=== PATIENT | male | born 1980 | race Caucasian/White ===

== ENCOUNTER 2022-10-17 16:27 | Emergency (ER) | payer SELFPAY ==
[2022-10-17 16:40] VITALS: BP 152/75; PULSE 67; RESP 16; TEMP 36.4; O2SAT 99; BMI 28.1
[2022-10-17] MEDS: LIDOCAINE 1 % PF 30 ML INJECTION (17:39)
--- NOTE | 2022-10-17 18:17 | ED.GENADULT ---
HPI - General Adult General Chief complaint: Extremity Pain/Injury, Upper Stated complaint: Smashed R middle finger, Has a green color by nail Time Seen by Provider: 10/17/22 17:19 Source: patient Mode of arrival: ambulatory Limitations: no limitations History of Present Illness HPI narrative: 42-year-old otherwise healthy male presents to the emergency department with swelling and tenderness with what appears to be pus along the medial 3rd finger nail fold of the right side. He says he was working outside 4 days ago when his finger got pulled into a tyrone, a pinch type injury. He was able to pull his finger out without significant difficulty. He says that his hands were cold in his dexterity was reduced because of the cold, leading to the mild injury. He is able to flex and extend the fingers without difficulty and declines an x-ray today. As however notice increased redness and swelling along the dorsum of the 3rd finger, increasing today. For started to notice yellowish green pus along the nail bed which seems to be increasing also. He has some mild tenderness but is not overly bothered by it. He did not notice any broken skin or lacerations as result of the injury. He has not been taking medication to help with his symptoms. Hurts more when bumped. No fever. He does not using immunosuppressants, he has no history of autoimmune disease. No history of MRSA. No other areas of injury. No drainage noted from the finger. Past medical history benign, no major long-term health problems. No prescription medications, no recent surgeries. No allergies. ROS is negative for other skin, generalized, musculoskeletal or neurological injuries. Related Data Previous Rx's Medication Instructions Recorded dextroamphetamine-amphetamine ER 30 mg PO QAM ADHD #30 caps 07/28/22 30 mg 24hr capsule,extend release (Adderall XR) amoxicillin 875 mg-potassium 1 tab PO BID #14 tabs 10/17/22 clavulanate 125 mg tablet Allergies Allergy/AdvReac Type Severity Reaction Status Date / Time No Known Allergies Allergy Verified 05/27/22 14:46 [facility] Medical History ADHD Social History Smoking Status: Never smoker service: No Exam Const: Vital Signs, click to edit/add: Vital Signs - 24 hr 10/17/22 16:40 Temperature 97.5 F L Pulse Rate [Pulse Oximeter] 67 Respiratory Rate 16 Blood Pressure [Le ft Upper Arm] 152/75 H Pulse Oximetry 99 Oxygen Delivery Me thod Room Air Documenting provider has reviewed patient's vital signs: yes Common normals: no apparent distress General appearance: cooperative HENMT: Common normals: normocephalic Head and scalp: normocephalic Eye: Common normals: no scleral icterus Other: Normal gaze and visual tracking Resp: Common normals: normal respiratory effort and no use of accessory muscles Effort & inspection: able to speak in complete sentences Cardio: Common normals: regular rate, regular rhythm, S1 normal heart sound, S2 normal heart sound and peripheral pulses 2+ throughout Rate: regular rate Rhythm: regular rhythm Heart sounds: S1 normal and S2 normal Peripheral pulses: pulses 2+ throughout Extremity: Other: Right wrist with normal range of motion. The only affected finger is the 3rd right finger, as he described. There is marked swelling to the distal phalanx on the dorsum side with redness and yellow purulent appearing discoloration underneath the skin along the nail bed. It is more medial than lateral. Marked swelling is noted as well. The swelling does not extend past the middle phalanx. There is no streaking or swelling up the arm. He has normal abduction and adduction of all the fingers and can flex and extend without difficulty at each interphalangeal and MCP joint. No drainage noted, no broken skin. Psych: Attitude: engaged Insight: insight good Judgement: judgment good Skin: Common normals: no wounds (See extremity exam as above or swelling, redness, purulent subcutaneous jeff) Course Vital Signs Vital signs: Initial Vital Signs Temperature 97.5 F L 10/17/22 16:40 Temperature Source Temporal Artery Scan 10/17/22 16:40 Pulse Rate 67 10/17/22 16:40 Respiratory Rate 16 10/17/22 16:40 Blood Pressure 152/75 H 10/17/22 16:40 Blood Pressure Mean 100 10/17/22 16:40 Blood Pressure Position Sitting 10/17/22 16:40 Pulse Oximetry 99 10/17/22 16:40 Oxygen Delivery Method 10/17/22 16:40 Vital Signs Temperature 97.5 F L 10/17/22 16:40 Pulse Rate 67 10/17/22 16:40 Respiratory Rate 16 10/17/22 16:40 Blood Pressure 152/75 H 10/17/22 16:40 Pulse Oximetry 99 10/17/22 16:40 Oxygen Delivery Method 10/17/22 16:40 Temperature 97.5 F L 10/17/22 16:40 Pulse Rate 67 10/17/22 16:40 Respiratory Rate 16 10/17/22 16:40 Blood Pressure 152/75 H 10/17/22 16:40 Pulse Oximetry 99 10/17/22 16:40 Oxygen Delivery Method 10/17/22 16:40 Medical Decision Making MDM Narrative Medical decision making narrative: Area was cleansed with iodine, incised with 11 blade after digital block performed, very well tolerated, 4-5 mL of yellow serosanguineous material expressed, culture collected. Bleeding stopped spontaneously, it ever with antibiotic ointment, several Band-Aids and wound care discussed. Patient will keep the current bandage on tonight and removed to wash gently tomorrow morning, keep covered with antibiotic ointment and Band-Aid for the next week. Was given single dose of Augmentin here in the emergency department. He confirms that his tetanus shot is up-to-date. Will continue on Augmentin for the next 7 days, alarm symptoms for worsening infection reviewed with patient he verbalizes understanding and agreement. Okay to use Tylenol and ibuprofen as needed for pain Discharge Plan Discharge Clinical Impression: Abscess of finger of right hand Patient Disposition: Home w/ Parent or Adult Condition: Improved Instructions: Abscess Incision and Drainage (DC) Additional Instructions: We drained the abscess that occurred because of the injury. But her this and give you a call if the antibiotic that was chosen is not appropriate. As we discussed, most of the time, drainage of the abscess is sufficient for treatment. But because this is your hand, would like extra caution and will have you on antibiotics for the next week. If you start having streaking redness up the arm, increased swelling, , fevers or increased pain after 24 hours, please follow-up with your primary care provider. This should look markedly better in a couple of days and if not, please schedule follow-up visit. As we discussed, the antibiotic may give you diarrhea, I would recommend that you use Imodium if it is problematic. It is okay to take Tylenol and/or ibuprofen for pain. The skin will likely peel and slough off but new skin should regrow without complication. You declined an x-ray which is certainly reasonable. If you start to experience problems with movement of the finger, you will likely have a tendon injury and this would need an orthopedic intervention. Please keep the bandage applied on tonight. Continue drainage is okay. You may remove the bandage if it becomes too soaked. In the morning, wash gently with soap and water, apply antibiotic ointment and Band-Aids in a fashion similar to my initial treatment. Activity Level: Activity as Tolerated Discharge Diet: Regular Prescriptions: New amoxicillin-pot clavulanate 875-125 mg tablet 1 tab PO BID Qty: 14 0RF No Action dextroamphetamine-amphetamine [Adderall XR] 30 mg capsule,extended release 24hr 30 mg PO QAM Qty: 30 0RF Follow Up/Referrals: Fred Cueto MD [Primary Care Provider] - Stand Alone Forms: [facility] Info Instructions Procedures I/D Type: abscess Site: finger (Third right) Pre procedure diagnosis: Subcutaneous abscess Post procedure diagnosis: Same, drained Anesthesia I&D: lidocaine 1% (Digital block, successful) Amount of anesthesia used (mls): 2 Side (if applicable): right Local Anesthetic: lidocaine 1% Technique: incised with #11 blade Irrigation: No Packing used?: none Estimated blood loss (if any): less than 5mls
--- OUTSIDE RECORDS SUMMARY | 2022-10-17 18:17 | XMS_ITS | Encounter Summary ---
:1980 Author Organization [facility] Address [address] [place] [address] Care Team Providers Name Role Phone Unavailable Primary Care Provider Unavailable Reason for Referral Specialty Diagnoses / Procedures Referred By Contact Refer red To Contact [facility] [address] [place] [address] Referral ID Status Reason Start Date Expiration Date Visits Requ ested Visits Authorized Reason for Visit Appointment Request (Routine) - Closed Specialty Diagnoses / Procedures Referred By Contact Refer red To Contact Family Medicine Referral ID Status Reason Start Date Expiration Date Visits Requ ested Visits Authorized [id number] Closed 02/20/2021 02/20/2022 1 1 Encounter Details Date Type Department Care Team Description 02/25/2021 Immunization Department of [facility] er For COVID-19 Medicine, [facility] (Primar y Dx) [address] [address] [address], [place] [address] Social History Tobacco Use Types Packs/Day Years Used Date Smoking Tobacco: Never Assessed Sex Assigned at Date Recorded Not on file documented as of this encounter Plan of Treatment Scheduled Referrals Name Type Priority Associated Diagnoses Order S chedule Covid immunization Outpatient Referral Routine Encounter For E xpected: office visit COVID-19 Vaccine 03/18/2021, Subsequent; 21 days Immunization Expires: 02/26/2024 documented as of this encounter Visit Diagnoses Diagnosis Encounter For COVID-19 Vaccine Immunizat ion - Primary documented in this encounter
--- OUTSIDE RECORDS SUMMARY | 2022-10-17 18:17 | XMS_ITS | Clinical Summary ---
:1980 Author Organization [facility] Address [address] [place] [address] Care Team Providers Name Role Phone Unavailable Primary Care Provider Unavailable Source Comments Patient records contain information from all sites at [facility]. For routine questions regarding patient records, call [phone] during business hours, M-F 8:00 AM - 5:00 PM Central Time. Record requests for emergency care only can be directed to [phone] at any time.[facility] Allergies No known active allergies Immunizations Name Administration Dates Next Due SARS-COV-2 (COVID-19) - PFIZER (12 years or older) , 02/25/2021 Social History Tobacco Use Types Packs/Day Years Used Date Smoking Tobacco: Never Assessed Sex Assigned at Date Recorded Not on file Plan of Treatment Health Maintenance Due Date Last Done Comments HIV Screening 1980 Hepatitis C Screening 1980 Lipid (Cholesterol) 1980 Screening Hepatitis B Vaccines (3 of 10/27/2007 10/13/2007, 7 4 - Hep B Twinrix 4-dose series) Depression Screening 11/14/2021 (Annual PHQ-2) COVID-19 Vaccine (5 - 03/31/2022 02/03/2022, 12/02/2021, Booster for Pfizer series) 03/20/2021, Additiona l history exists Influenza Vaccine (#1) 2022 12/02/2021, 10/01/2013 DTaP,Tdap,and Td Vaccines 08/13/2026 08/13/2016 (2 - Td or Tdap) Pneumococcal vaccine (0-64 Aged Out No lo nger eligible years) based on patient 's age to complete this topic
--- OUTSIDE RECORDS SUMMARY | 2022-10-17 18:17 | XMS_ITS | Encounter Summary ---
:1980 Author Organization [facility] Address [address] [place] [address] Care Team Providers Name Role Phone Unavailable Primary Care Provider Unavailable Encounter Details Date Type Department Care Team Description 03/20/2021 Immunization Department of [facility] For COVID-19 Medicine, [facility] Elias Dee Vaccine Immunization [facility], in [place] [address] [place], [place] [address] [facility] [address] [place] [address] [phone] Social History Tobacco Use Types Packs/Day Years Used Date Smoking Tobacco: Never Assessed Sex Assigned at Date Recorded Not on file documented as of this encounter Plan of Treatment Not on filedocumented as of this encounter Visit Diagnoses Diagnosis Encounter For COVID-19 Vaccine Immunizat ion documented in this encounter
--- OUTSIDE RECORDS SUMMARY | 2022-10-17 18:17 | XMS_ITS | Clinical Summary ---
:1980 Author Organization [facility] [employer] [facility] [place] [address] Care Team Providers Name Role Phone Pcp, No Primary Care Provider Unavailable Allergies No known active allergies Medications Medication Sig Dispensed Refills Start Date End Date Status propranolol (INDERAL) Take 1 tablet by 6 tablet 0 12/25/2009 Active 20 mg tablet mouth 2 times daily. meclizine (ANTIVERT) 25 Take 1 tablet by 30 tablet 0 0 Active mg tablet mouth every 6 hours if needed for Vertigo. ibuprofen (ADVIL; Take 200 mg by 0 Active MOTRIN) 200 mg Cap mouth 4 times daily if needed. Active Problems Not on file Social History Tobacco Use Types Packs/Day Years Used Date Never Assessed Sex Assigned at Date Recorded Not on file Obstetrics History Last Filed Vital Signs Vital Sign Reading Time Taken Comments Blood Pressure 140/93 07/15/2018 7:48 PM CDT Pulse 97 07/15/2018 7:48 PM CDT Temperature 36.4 ??C (97.6 ??F) 07/15/2018 7:48 PM CDT Respiratory Rate 12 07/15/2018 7:48 PM CDT Oxygen Saturation 96% 07/15/2018 7:48 PM CDT Inhaled Oxygen Concentration - - Weight 83.9 kg (185 lb) 07/15/2018 7:48 PM CDT Height 172.7 cm (5' 8) 07/15/2018 7:48 PM CDT Body Mass Index 28.13 07/15/2018 7:48 PM CDT Plan of Treatment Not on file Results Not on filefrom Last 3 Months Care Teams Shipping And Receiving Relationship Specialty Start Date End Date Pcp, No PCP - General 07/15/18 .
== END 2022-10-17 18:14 | disposition home or self-care (01) ==
PROVIDERS: Emergency Provider Family Medicine; PCP Internal Medicine
DX: L03.011 Cellulitis of right finger (principal)
CPT/HCPCS: 10060; 87070; 87186; 99282; 99283; J2001

== ENCOUNTER 2022-11-12 02:48 | Emergency (ER) | payer SELFPAY ==
[2022-11-12 02:57] VITALS: BP 160/85; PULSE 84; RESP 18; TEMP 36.7; O2SAT 99; BMI 27.3
--- NOTE | 2022-11-12 03:17 | XR_ITS ---
Final Report Patient: FRANKI OCHOA Facility:?[facility] Patient ID:?[id number] Site Patient ID:?[id number]. Site :?1980 Study:?XRay Abdomen/Pelvis -11/12/2022 4:21:31 AM Ordering Physician:Tatyana Guzman Final Report: Indication: Abdomen pain. Technique: Abdomen 2 view. Comparison: None. Findings: Bowel: Bowel pattern is normal. The amount of colonic stool is within normal limits. Other: No sign of free air. No sign of soft tissue mass. No suspicious calcifications. Osseous structures are unremarkable for age. Impression: Unremarkable abdomen. Dictated by Gregory Mitchell MD @ 11/12/2022 5:10:26 AM (Electronic Signature)
--- NOTE | 2022-11-12 03:18 | ED.GENADULT ---
HPI - General Adult General Date Seen: 11/12/22 Chief complaint: Unspecified Complaint, Adult Stated complaint: Left side abdominal pain Time Seen by Provider: 11/12/22 02:56 Source: patient Mode of arrival: ambulatory Limitations: no limitations History of Present Illness HPI narrative: Patient is a 42-year-old male who was having ?wild sex?and had inserted a metallic bar with a ball on the end into his rectum. This was uncomfortable but tolerable until he fell off the bed jamming this device about 8-10 inches deep into his rectum. He was able to remove it on his own and did not notice any tearing or bleeding. The pain was substantial but he did not take any pain medication. He has not been able to pass any gas since this happened and is worried that something may have been perforated. There has been no bleeding. No pain in his testicles. Related Data Previous Rx's Medication Instructions Recorded dextroamphetamine-amphetamine ER 30 mg PO QAM ADHD #30 caps 10/20/22 30 mg 24hr capsule,extend release (Adderall XR) Allergies Allergy/AdvReac Type Severity Reaction Status Date / Time No Known Allergies Allergy Verified 11/12/22 02:59 Review of Systems Narrative: Review of systems is outlined above otherwise noted to be negative. [facility] Medical History (Updated 11/12/22 @ 05:37 by Thomas Cochran MD) ADHD Surgical History (Updated 11/12/22 @ 03:01 by Hola Gruber RN) No significant past surgical history Social History Smoking Status: Never smoker Second hand tobacco smoke exposure: No How often do you have a drink containing alcohol: never How often do you have six or more drinks on one occasion: Never AUDIT-C Alcohol total score: 0 Non-prescribed substance use: denies use service: No Exam Narrative: Exam Narrative: Vitals noted. Lungs: Clear to auscultation in all seay. No wheezes, rales, rhonchi. Heart: Regular rate and rhythm without murmur. Abdomen: Soft and nontender. No guarding, rigidity, rebound. Bowel sounds are normal. No palpable masses. No outward sign of perirectal trauma. Extremities: No cyanosis or edema. Good distal pulses. Skin: No abnormalities noted of the exposed skin. Neurologic: Awake, alert, fully oriented. Neurologic exam is nonfocal. Const: Vital Signs, click to edit/add: Vital Signs - 24 hr 11/12/22 02:57 11/12/22 02:57 11/12/22 05:45 Temperature 98.0 F 98.2 F Pulse Rate [Right Pulse Oximeter] 84 79 Respiratory Rate 18 18 Respiratory Rate [ Rectum] 18 Blood Pressure [Ri ght Upper Arm] 160/85 H 150/74 H Pulse Oximetry 99 99 Oxygen Delivery Me thod Room Air Room Air 11/12/22 05:46 Temperature 98.2 F Pulse Rate [Right Pulse Oximeter] 79 Respiratory Rate 18 Respiratory Rate [ Rectum] Blood Pressure [Ri ght Upper Arm] 150/74 H Pulse Oximetry Oxygen Delivery Me thod Course Course Hospital Course: Patient seen and examined. Flat and upright views of the abdomen were done and were unremarkable. CT scan of the abdomen without contrast shows some inflammation around the rectum but no other abnormality. Patient is reassured by these normal findings and is anxious for discharge. Vital Signs Vital signs: Initial Vital Signs Temperature 98.0 F 11/12/22 02:57 Temperature Source Temporal Artery Scan 11/12/22 02:57 Pulse Rate 84 11/12/22 02:57 Respiratory Rate 18 11/12/22 02:57 Blood Pressure 160/85 H 11/12/22 02:57 Blood Pressure Mean 110 11/12/22 02:57 Blood Pressure Position Sitting 11/12/22 02:57 Pulse Oximetry 99 11/12/22 02:57 Oxygen Delivery Method 11/12/22 02:57 Vital Signs Temperature 98.0 F 11/12/22 02:57 Pulse Rate 84 11/12/22 02:57 Respiratory Rate 18 11/12/22 02:57 Blood Pressure 160/85 H 11/12/22 02:57 Pulse Oximetry 99 11/12/22 02:57 Oxygen Delivery Method 11/12/22 02:57 Temperature 98.2 F 11/12/22 05:46 Pulse Rate 79 11/12/22 05:46 Respiratory Rate 18 11/12/22 05:46 Blood Pressure 150/74 H 11/12/22 05:46 Pulse Oximetry 99 11/12/22 05:45 Oxygen Delivery Method 11/12/22 05:45 Discharge Plan Discharge Clinical Impression: Rectal injury Patient Disposition: Home, Self-Care Condition: Improved Additional Instructions: Tylenol or ibuprofen for pain. Follow-up if worsening or not improving. Prescriptions: No Action dextroamphetamine-amphetamine [Adderall XR] 30 mg capsule,extended release 24hr 30 mg PO QAM Qty: 30 0RF Follow Up/Referrals: Fred Cueto MD [Primary Care Provider] - Stand Alone Forms: [employer] Info Instructions
--- NOTE | 2022-11-12 03:45 | CRLHL7_ITS ---
For Patients: As a result of the Century Cures Act, medical imaging exams and procedure reports are released immediately into your electronic medical record. You may view this report before your referring provider. If you have questions, please contact your health care provider. INDICATION: RECTAL TRAUMA TECHNIQUE: CT abdomen and pelvis without contrast. COMPARISON: None. FINDINGS: Kidney/ureters: Kidneys are normal in caliber. No evidence of hydronephrosis. Liver/gallbladder/bile ducts: The liver is normal in size, shape and attenuation. Gallbladder is normal without visualized stones or inflammation. No biliary dilatation. Spleen/pancreas/adrenal glands: The spleen, adrenal glands and pancreas are within normal limits. GI tract: No evidence of bowel obstruction. Mild gaseous distention of the rectum with possible minimal inflammation of the perirectal fat. No visualized radiopaque foreign body. No evidence of free air. Normal appendix. Abdominal wall/omentum/peritoneum: No free air or significant free fluid. No mass or inflammation. Lymph nodes: No lymphadenopathy. Pelvis: The prostate is normal in size. Small dystrophic calcifications within the prostate parent Lower chest: Unremarkable. IMPRESSION: Mild gaseous distention of the rectum with possible minimal inflammation of the perirectal fat. No evidence of free air or fluid. Overall, evaluation is limited due to lack of IV and enteric contrast. Please note that all CT scans at this facility use dose modulation, iterative reconstruction, and/or weight-based dosing when appropriate to reduce radiation dose to as low as reasonably achievable. Dictated by Jean Paul Hayward MD @ 11/12/2022 5:29:48 AM (Electronically Signed)
[2022-11-12 05:45] VITALS: BP 150/74; PULSE 79; RESP 18; TEMP 36.8; O2SAT 99
[2022-11-12 05:46] VITALS: BP 150/74; PULSE 79; RESP 18; TEMP 36.8
== END 2022-11-12 05:47 | disposition home or self-care (01) ==
PROVIDERS: Emergency Provider Family Medicine; PCP Internal Medicine
DX: S36.69XA Other injury of rectum, initial encounter (principal); W06.XXXA Fall from bed, initial encounter; Y93.89 Activity, other specified; Y92.9 Unspecified place or not applicable
CPT/HCPCS: 74019; 74176; 99282; 99284

== ENCOUNTER 2023-02-22 16:53 | Outpatient (CLI) | payer MEDICAID, SELFPAY | END 2023-02-22 16:54 | disposition home or self-care (01) | LOC: LKVREF 16:55 | PROVIDERS: PCP Internal Medicine; Visit Provider Family Medicine | DX: R53.83 Other fatigue (principal); R30.0 Dysuria; Z11.3 Encounter for screening for infections with a predominantly sexual mode of transmission; R68.83 Chills (without fever) | CPT/HCPCS: 0353U; 86592; 86703; 86803; 87340; 87491; 87591 ==

== ENCOUNTER 2023-03-09 16:02 | Outpatient (CLI) | payer MEDICAID, SELFPAY | END 2023-03-09 16:03 | disposition home or self-care (01) | PROVIDERS: PCP Internal Medicine; Visit Provider Nurse Practitioner Family | DX: R53.83 Other fatigue (principal); Z11.3 Encounter for screening for infections with a predominantly sexual mode of transmission | CPT/HCPCS: 80053; 86592; 86703; 86708; 86803; 87340; 87491; 87591 ==

== ENCOUNTER 2024-07-06 21:01 | Emergency (ER) | payer OTHER, SELFPAY ==
[2024-07-06 21:15] VITALS: BP 128/91; PULSE 78; RESP 16; TEMP 36.6; O2SAT 98; BMI 28.1
--- OUTSIDE RECORDS SUMMARY | 2024-07-06 22:21 | XMS_ITS | Clinical Summary ---
Author Organization [facility] Address [place], [place] [address] Care Team Providers Care Vault Person Name Role Phone Pcp, No Primary Care Provider Unavailabl e Allergies No known active allergies Medications Medication Sig Dispensed Refills Start Date End Date Status propranolol (INDERAL) 20 mg tablet Take 1 tablet by mouth 2 times daily. 6 tablet 0 12/25/2009 Active meclizine (ANTIVERT) 25 mg tablet Take 1 tablet by mouth every 6 hours if needed for Vertigo. 30 tablet 0 12/29/2009 Active ibuprofen (ADVIL; MOTRIN) 200 mg Cap Take 200 mg by mouth 4 times daily if needed. Active Social History Tobacco Use Types Packs/Day Years Used Date Smoking Tobacco: Never Assessed Sex and Gender Information Value Date Recorded Sex Assigned at Not on file Gender Identity Not on file Sexual Orientation Not on file Obstetrics History Last Filed Vital Signs Vital Sign Reading Time Taken Comments Blood Pressure 140/93 07/15/2018 7:48 PM CDT Pulse 97 07/15/2018 7:48 PM CDT Temperature 36.4 ??C (97.6 ??F) 07/15/2018 7:48 PM CD T Respiratory Rate 12 07/15/2018 7:48 PM CDT Oxygen Saturation 96% 07/15/2018 7:48 PM CDT Inhaled Oxygen Concentration - - Weight 83.9 kg (185 lb) 07/15/2018 7:48 PM CDT Height 172.7 cm (5' 8) 07/15/2018 7:48 PM CDT Body Mass Index 28.13 07/15/2018 7:48 PM CDT Plan of Treatment Not on file Care Teams Vault Person Relationship Specialty Start Date End Date Pcp, No . PCP - General 07/15/18
--- NOTE | 2024-07-06 23:07 | ED_ITS ---
HPI - Eye Problem General Chief complaint: Eye Problems Stated complaint: Foreign object L eye Time Seen by Provider: 07/06/24 21:14 History of Present Illness HPI Narrative: This 44-year-old male comes in with a sensation of foreign object in his eye. He states that he was mowing the lawn earlier today and felt something come up into his eye. He tried irrigating his eye with no results. He is unsure of his tetanus status. Related Data Previous Rx's ?Medication ?Instructions ?Recorded prednisone 20 mg tablet 20 mg PO BID #10 tabs 05/25/23 Allergies Allergy/AdvReac Type Severity Reaction Status Date / Time No Known Allergies Allergy Verified 05/09/23 16:05 Review of Systems Status of ROS: Reports: 10 or more systems reviewed and unremarkable except as noted in History and below Narrative: Constitutional: No fevers, no weight gain or loss. Eyes: Left eye irritation with suspicion of foreign object. HENT: No congestion, no sore throat, no ear pain. Cardiovascular: No chest pain, no palpitations. Respiratory: No shortness of breath, no wheezes, no cough. Gastrointestinal: No abdominal pain, no vomiting, no diarrhea. Genitourinary: No dysuria, no hematuria. Musculoskeletal: Normal range of motion. Skin: No rashes, no pruritis. Neurological: No dizziness, weakness, sensory change, speech change. Endo/Heme/Allergies: No bruising or bleeding. No polydipsia. Pysch: no suicidality, no anxiety, no insomnia. All other systems reviewed and are negative. PFSH [facility] Surgical History No significant past surgical history Social History Smoking Status: Never smoker Second hand tobacco smoke exposure: No How often do you have a drink containing alcohol: never How often do you have six or more drinks on one occasion: Never AUDIT-C Alcohol total score: 0 Non-prescribed substance use: denies use Little interest or pleasure in doing things: not at all Feeling down, depressed, or hopeless: not at all service: No Exam Narrative: Exam Narrative: Constitutional: Well-developed, well-nourished, no acute distress. HEENT: Normocephalic, atraumatic. Left eye was examined after tetracaine anesthesia and using slit lamp magnification. A foreign object is imbedded in the sclera just in the lateral and inferior aspect bordering the cornea. Neck: Normal range of motion. Nontender. Supple. Heart: Regular. No murmurs. Normal rate. Intact distal pulses. Lungs: Clear to auscultation. No chest discomfort. No wheezes, rhonchi, or rales. Abdomen: Normal bowel sounds. Nontender. No rebound tenderness. Genitalia: Deferred. Back: No midline tenderness. Normal range of motion. Extremities: Normal range of motion. No injury. Skin: Intact. No rash. Warm. No erythema or pallor. Neurologic: No altered sensation. No weakness. Alert and oriented. Psychiatric: No suicidality. No anxiety or depression. No insomnia. Nursing notes and vitals signs are reviewed. Const: Vital Signs, click to edit/add: Vital Signs - 24 hr 07/06/24 21:15 Temperature 97.8 F Pulse Rate [Pulse Oximeter] 78 Respiratory Rate 16 Blood Pressure [Le ft Upper Arm] 128/91 H Pulse Oximetry 98 Oxygen Delivery Me thod Room Air Course Vital Signs Vital signs: Initial Vital Signs Temperature 97.8 F 07/06/24 21:15 Temperature Source Temporal Artery Scan 07/06/24 21:15 Pulse Rate 78 07/06/24 21:15 Pulse Rhythm Regular 07/06/24 21:15 Respiratory Rate 16 07/06/24 21:15 Blood Pressure 128/91 H 07/06/24 21:15 Blood Pressure Mean 103 07/06/24 21:15 Blood Pressure Position Sitting 07/06/24 21:15 Pulse Oximetry 98 07/06/24 21:15 Oxygen Delivery Method Room Air 07/06/24 21:15 Vital Signs Temperature 97.8 F 07/06/24 21:15 Pulse Rate 78 07/06/24 21:15 Respiratory Rate 16 07/06/24 21:15 Blood Pressure 128/91 H 07/06/24 21:15 Pulse Oximetry 98 07/06/24 21:15 Oxygen Delivery Method Room Air 07/06/24 21:15 Temperature 97.8 F 07/06/24 21:15 Pulse Rate 78 07/06/24 21:15 Respiratory Rate 16 07/06/24 21:15 Blood Pressure 128/91 H 07/06/24 21:15 Pulse Oximetry 98 07/06/24 21:15 Oxygen Delivery Method Room Air 07/06/24 21:15 MDM - Eye Problem MDM Narrative Medical decision making narrative: This patient has a foreign object in his eye that is very small. It is visible under magnification only. After anesthesia with tetracaine I attempted to remove it using a needle, a Q-tip, and an [place] brush. These were all unsuccessful as the foreign object is like a spear or thorn that is punctured into his eye and the conjunctiva has appeared to grow over the top of it. IA eventually used a small alligator tool and was able to remove the small foreign object. He found immediate relief after doing so. The patient did receive a tetanus vaccination and was sent home with gentamicin ophthalmic solution. Discharge Plan Discharge Clinical Impression: Foreign body in eye Patient Disposition: Home, Self-Care Condition: Improved Additional Instructions: Take eyedrops as prescribed. Follow up with MD return if worsening. Prescriptions: No Action prednisone 20 mg tablet 20 mg PO BID Qty: 10 0RF Follow Up/Referrals: Provider,Not a Local [Primary Care Provider] - Stand Alone Forms: [employer] Info Instructions
[2024-07-06] MEDS: TETANUS/DIPHTH/PERTUSSIS 0.5 ML SYRINGE IM (23:15)
== END 2024-07-06 23:25 | disposition home or self-care (01) ==
PROVIDERS: Emergency Provider Emergency Medicine Emergency Medical Services
DX: T15.02XA Foreign body in cornea, left eye, initial encounter (principal); Z23 Encounter for immunization
CPT/HCPCS: 65220; 90471; 90715; 99283; 99284; A9270